=== PATIENT | male | born 1950 | race Caucasian/White ===

== ENCOUNTER 2024-05-22 07:10 | Outpatient (CLI) | payer MEDICARE, BC, SELFPAY ==
--- NOTE | ~2024-05-22 | NM_ITS ---
EXAMINATION: NM bone scan whole body DATE: 05/22/2024 11:11 INDICATION: Prostate cancer TECHNIQUE: 87.4 mCi Tc-99m HDP was administered intravenously. Delayed whole-body scintigrams were o btained. COMPARISON: CT dated 05/22/2024 FINDINGS: Photopenic defect at the left hip corresponding to a total hip arthroplasty. Small foci of likely ent hesopathic uptake at the bilateral patellae and anterior tibial tuberosities. Likely degenerative deedee nt centered uptake at the medial compartment of the right knee, right acromioclavicular joint and at the cephalad margin of the right hip with corresponding osteoarthritic changes. There is increased up take at the right side of the L5-S1 disc space where there is severe disc height loss with degenerati ve endplate remodeling on prior CT as well as at the left L3-L4 facet joint where there is associated severe osteoarthritis. There are no other atypical foci of bone uptake to suggest osseous metastatic disease. IMPRESSION: 1. Typical pattern of scattered foci of likely degenerative enthesopathic, osteoarthritic and discoge parris uptake as detailed above. No lesion suspicious for metastatic disease. Reviewed, dictated and finalized at location B. IMPRESSION: 1. Typical pattern of scattered foci of likely degenerative enthesopathic, oste oarthritic and discogenic uptake as detailed above. No lesion suspicious for me tastatic disease.
--- NOTE | ~2024-05-22 | CT_ITS ---
EXAMINATION: CT abdomen pelvis w con DATE: 05/22/2024 07:57 INDICATION: Prostate cancer TECHNIQUE: Computed tomography (CT) of the abdomen and pelvis was performed with 100 mL Omnipaque-350 intravenous contrast. Automated exposure control and iterative reconstruction technique were employe d. The dose-length product was 383.41 mGy-cm. COMPARISON: None FINDINGS: Mild emphysema at the visualized lower lungs with a few small calcified pleural plaques at the periph efrain of the right lower lung. Visualized heart size is normal. Atherosclerotic coronary artery calcifi c lesion. Partially visualized cardiac pacemaker leads in the heart. No pericardial effusion. Liver, gallbladder, spleen, pancreas, bilateral adrenal glands are normal. There are bilateral renal cysts m easuring up to 3.6 similar on the right. Very small fat-containing umbilical hernia. There is moderat e colonic diverticulosis with a sigmoid predominance. There is no adjacent inflammatory change to culp ggest diverticulitis. No bowel obstruction. Prostatomegaly measuring approximately 5.9 x 4.4 cm altho ugh visualization is suboptimal due to streak artifact from adjacent left total hip arthroplasty. Mathew dder is normal. No free intraperitoneal gas or fluid. No pathologically enlarged abdominal or pelvic lymphadenopathy. Small fat-containing left inguinal hernia. There is calcified atherosclerosis of the aorta and many of the other arteries. Mild lower lumbar levocurvature with moderate spondylosis. Mod erate right hip osteoarthritis. There are few scattered small sclerotic bone lesions in the spine and pelvis which could represent bone islands or potentially metastatic disease. IMPRESSION: 1. Prostatomegaly with no pathologically enlarged lymphadenopathy in the abdomen or pelvis to suggest metastatic disease. 2. There are few scattered small sclerotic lesions in the visualized spine and pelvis typical for bon e islands however could not exclude metastatic disease and would correlate with either bone scan or P SMA PET. 3. Mild emphysema at the lung bases with a few unilateral small calcified pleural plaques on the righ t which could represent sequela of a prior exudative effusion. 4. Sigmoid diverticulosis. Reviewed, dictated and finalized at location B. IMPRESSION: 1. Prostatomegaly with no pathologically enlarged lymphadenopathy in the abdome n or pelvis to suggest metastatic disease. 2. There are few scattered small sclerotic lesions in the visualized spine and pelvis typical for bone islands however could not exclude metastatic disease an d would correlate with either bone scan or PSMA PET. 3. Mild emphysema at the lung bases with a few unilateral small calcified pleur al plaques on the right which could represent sequela of a prior exudative effu thony. 4. Sigmoid diverticulosis.
[2024-05-22 07:44] LABS: Estimated Glomerular Filt Rate > 60
== END 2024-05-22 07:11 | disposition home or self-care (01) ==
PROVIDERS: PCP Internal Medicine; Visit Provider Urology
DX: C61 Malignant neoplasm of prostate (principal); K57.30 Diverticulosis of large intestine without perforation or abscess without bleeding; J43.9 Emphysema, unspecified
CPT/HCPCS: 74177; 78306; A9503; Q9967

== ENCOUNTER 2024-06-20 13:36 | Outpatient (CLI) | payer MEDICARE, BC, SELFPAY ==
--- NOTE | ~2024-06-20 | XR_ITS ---
CHEST RADIOGRAPH, PA AND LATERAL CLINICAL HISTORY: C61 - Malignant neoplasm of prostate . COMPARISON: None TECHNIQUE: PA and lateral views of the chest. FINDINGS The right mid lung is partially obscured due to pacemaker generator. Wires project over the right atrium and right ventricle. The remainder of the cardiomediastinal silhouette is otherwise unremarkable. The lungs are clear. Visualized osseous structures and soft tissues are unremarkable. IMPRESSION: No focal infiltrate or effusion. Reviewed, dictated and finalized at location A.
--- NOTE | 2024-06-20 14:38 | ECG_ITS ---
Test Date: 2024-06-20 14:44:06 Measurements Intervals Terry Rate: 67 P: 99 DE: 256 QRS: 87 QRSD: 154 T: 92 QT: 426 QTc: 451 Interpretive Statements ELECTRONIC ATRIAL PACEMAKER ELECTRONIC VENTRICULAR PACEMAKER ABNORMAL RHYTHM ECG No previous ECG available for comparison Electronically Signed On 06-21-2024 08:25:50 CDT by Luiza Tracey M.D.
[2024-06-20 15:02] LABS: Basophils Absolute Auto 0.1 K/mm3 (0.0-0.1); Basophils Percent Auto 0.7 % (0.2-1.2); Eosinophils Absolute Auto 0.1 K/mm3 (0-0.3); Eosinophils Percent Auto 1.1 % (0-4.4); Hematocrit 46.5 % (42.0-52.0); Hemoglobin 15.8 g/dL (14.0-18.0); Immature Granulocyte Absolute 0.03 K/mm3 (0.00-0.031); Immature Granulocyte Percent A 0.3 % (0-0.5); Lymphocytes Absolute Auto 1.57 K/mm3 (0.9-3.2); Lymphocytes Percent Auto 16.3 % (18.3-44.2); Mean Corpuscular Hemoglobin 31.4 pg (26-34); Mean Corpuscular Volume 92.4 fl (80-100); Mean Platelet Volume 8.8 fl (7.4-10.4); Monocytes Absolute Auto 0.6 K/mm3 (0.1-0.6); Monocytes Percent Auto 6.3 % (2.6-8.5); Neutrophils Absolute Auto 7.3 K/mm3 (1.3-6.7); Neutrophils Percent Auto 75.3 % (45.5-73.1); Platelet Count Result 220 k/mm3 (150-375); Red Blood Count 5.03 M/mm3 (4.6-6.20); White Blood Count 9.7 K/mm3 (4.5-10.0)
[2024-06-20 15:03] LABS: Add Urine Microscopic? NO; Appearance Urine Clear (Clear); Bilirubin Urine Negative (Negative); Blood Urine Negative (Negative); Color Urine Yellow (Yellow); Glucose Urine UA 3+ mg/dL (Negative); Ketones Urine Negative (Negative); Leukocyte Esterase Ur Negative LEU/UL (Negative); Nitrate Urine Negative (Negative); Protein Urine Negative (Negative); Specific Grav Ur 1.008 (1.001-1.035); Urobilinogen Urine 0.2 mg/dL (<2.0); pH Urine 5.5 (5.0-9.0)
[2024-06-20 15:12] LABS: Prothrombin Time 13.9 Seconds (11.1-14.7)
[2024-06-20 15:13] LABS: Alanine Aminotransferase 16 U/L (6-50); Albumin Level 4.3 g/dL (3.5-5.1); Alkaline Phosphatase 78 U/L (38-126); Anion Gap 10 mmol/L (4-12); Aspartate Amino Transferase 15 U/L (17-59); Bilirubin,Total 0.5 mg/dL (0.2-1.3); Blood Urea Nitrogen 22 mg/dL (9-20); Calcium 8.8 mg/dL (8.4-10.2); Carbon Dioxide 22 mmol/L (22-30); Chloride 107 mmol/L (98-107); Estimated Glomerular Filt Rate > 60; Glucose 117 mg/dL (65-110); Partial Thromboplastin Time 26.2 Seconds (22.3-36.8); Potassium 4.1 mmol/L (3.4-5.0); Sodium 139 mmol/L (137-145)
== END 2024-06-20 13:37 | disposition home or self-care (01) ==
LOC: ANHSURGERY 13:40
PROVIDERS: PCP Internal Medicine; Visit Provider Urology
DX: C61 Malignant neoplasm of prostate (principal); R94.31 Abnormal electrocardiogram [ECG] [EKG]
CPT/HCPCS: 36415; 71046; 80053; 81003; 85025; 85610; 85730; 86850; 86900; 86901; 93005

== ENCOUNTER 2024-07-03 01:34 | Day surgery (SDC) | payer MEDICARE, BC, SELFPAY ==
--- NOTE | 2024-06-18 07:34 | PM.IMHP ---
H&P: HPI History of Present Illness Date/Time: 06/18/24 07:34 Chief Complaint: Prostate cancer Narrative: This patient is a 73-year-old male with longstanding outlet obstructive voiding symptoms secondary to BPH. He was recently found to have a PSA of 5.2 and prostate biopsy demonstrated 8 of 12 cores with [place] 3 +4 equals 7 and 4+3=7 adenocarcinoma. On the biopsy there was evidence of perineural invasion but no extracapsular extension. Calculated potential for lymph node involvement was 2% and seminal vesicle involvement 6%. Prostate volume was 53.8 g. After careful discussion of the therapeutic options including active surveillance, radiation therapy and robotic prostatectomy he is has elected for the latter. He is aware of the risks including, but not limited to, failure to control his cancer need for additional therapy, rectal injury, urinary incontinence and erectile dysfunction. Review of Systems Cardiovascular: Cardiovascular: Denies chest pain, Denies lightheadedness, Denies palpitations and Denies dyspnea Respiratory: Respiratory: Denies dyspnea Gastrointestinal: Gastrointestinal: Denies diarrhea, Denies nausea and Denies vomiting Genitourinary: Genitourinary: Denies hematuria and Denies dysuria Endocrine: Endocrine: Denies palpitations Exam Const: General: no acute distress Resp: Effort & Inspection: normal respiratory effort GI: Inspection: non-distended GI Palp: No abdominal tenderness and No Guarding due to palpation present (GI) Auscultation: normal bowel sounds Assessment and Plan Assessment and plan (1) Prostate cancer: Code(s): C61 - Malignant neoplasm of prostate Status: Acute Plan Robotic assisted radical prostatectomy with bilateral pelvic lymphadenectomy
[2024-06-20 13:56] VITALS: BP 99/69; PULSE 62; RESP 16; TEMP 36.9; O2SAT 96; BMI 23.1
--- NOTE | 2024-06-20 14:02 | PC.NURSE ---
Addendum entered by Jhoana Shelton RN 06/20/24 15:24: PT INSTRUCTED TO FOLLOW INSTRUCTIONS FOR BOWEL PREP/LIQUID DIET PER DR ADAMS ON DAY BEFORE SURGERY. PT RELAYS UNDERSTANDING. Original Note: Report to the Outpatient Waiting Room, entrance under the green pavilion located off [facility], at time ___6:00AM____ on date ____07/03/24___. Planned Procedure Time: ___7:30AM .? Time changes happen often and if your time is changed the preop area will call you the afternoon before. - You and your visitor will be asked to self-screen and do not enter if you have any COVID symptoms. Please call surgeon if you need to reschedule. - A mask is optional within the hospital at this time. Patients may have clear liquids (water, carbonated beverages, clear teas, apple juice) until 3 hours prior to surgery with a maximum of 20 ounces. - No food from midnight until time of surgery and no smoking. Take only the following medications with a SIP of water on the morning of surgery: ___NONE DO NOT STOP ANY OF YOUR OTHER PRESCRIPTION MEDICATIONS PRIOR TO SURGERY EXCEPT THE FOLLOWING Medications to discontinue per physician ____HOLD ASPIRIN AND ALL VITAMINS/SUPPLEMENTS 7 DAYS PRE-OP PER DR ADAMS__ Date to take last dose 06/25/24 Please no make-up, nail kiswahili, hairspray, perfume, deodorant, or body powder the day of surgery.? No jewelry (including any body piercings) or valuables the day of surgery, leave them at home.? Please take a shower or bath the night before, or the morning of, surgery with an antibacterial soap.? Wear comfortable, loose fitting clothing.? - Jewelry must be removed prior to entering the operating room.? Rings and piercings that are not removed may be cut off. - The hospital will not accept responsibility for valuables.? - Please leave all valuables, including medications, at home the day of surgery. If you are going home after surgery, a licensed regional intermodal truck driver must drive you home.? - NO public transportation without another adult if you receive anesthesia. - We recommend that an adult stay with you for 24 hours following discharge. - We also recommend that you do not drive, make important decision, drink alcoholic beverages, or take any drugs that were not prescribed by your health care provider for at least 24 hours after your discharge time. Follow any additional instructions given to you from your surgeon. Telephone instructions given to ____PATIENT and asked if any additional questions and then verbalized understanding. Patient advised to call surgeon office or pre surgery nurse liaison [phone] if any additional questions.
[2024-07-03] VITALS (14 sets, daily range): BP systolic 95–126; BP diastolic 66–93; PULSE 60–120; RESP 4–20; TEMP 36–37.3; O2SAT 95–100
--- NOTE | 2024-07-03 06:19 | WPDHPUPDATE1 ---
History and Physical Update Update Date/Time: 07/03/24 06:19 History and Physical has been reviewed, including an updated exam of the patient. There are NO changes in the patient's condition. Risks, benefits, and alternatives have been discussed and questions answered. Patient agrees to proceed with procedure.
[2024-07-03] MEDS: LACTATED RINGERS 1,000 ML 30 ML IV CONT ×2 (06:30→11:05)
[2024-07-03 06:33] LABS: Glucose Point of Care 157 mg/dl (65-105)
--- NOTE | 2024-07-03 06:41 | P.PNAN_ITS ---
Anes - Initial Pre Proc Eval Procedure: Operation Date: 07/03/24 07:30 Proposed Procedures p Robotic Laparoscopic Prostatectomy with Bilateral Pelvic Lymph Node Dissection - Chau Tony MD Date/Time: 07/03/24 06:41 Surgeon: Chau Tony MD Pre Op Diagnosis: prostate CA Patient Data Age: 73 Gender: M Height: 1.78 m Weight: 73.1 kg Last Vital Signs Temp 36.9 C 06/20/24 13:56 Pulse 62 06/20/24 13:56 Resp 16 06/20/24 13:56 BP 99/69 L 06/20/24 13:56 Pulse Ox 96 06/20/24 13:56 O2 Del Method Room Air 06/20/24 13:56 Allergies Allergy/AdvReac Type Severity Reaction Status Date / Time penicillin G Allergy Hives Verified 06/20/24 13:46 Home Medications Medication Instructions Recorded Confirmed Type aspirin 81 mg tablet,delayed 81 mg PO 3XW 06/20/24 06/20/24 History release atorvastatin 20 mg tablet 20 mg PO HS 06/20/24 06/20/24 History cinnamon bark 500 mg capsule 1,000 mg PO DAILY 06/20/24 06/20/24 History (Cinnamon) dapagliflozin propanediol 5 mg 5 mg PO QAM 06/20/24 06/20/24 History tablet (Farxiga) finasteride 5 mg tablet 5 mg PO QAM 06/20/24 06/20/24 History glimepiride 2 mg tablet 2 mg PO QAM 06/20/24 06/20/24 History metformin 1,000 mg tablet 1,000 mg PO BID 06/20/24 06/20/24 History Laboratory Tests 07/03/24 06:29 POC Capillary Glucose 157 H mg/dl (65-105) Patient hx anesthesia problems: none Family hx anesthesia problems: none Results Review: All pre-operative results and documents have been reviewed as part of the pre- operative evaluation. FOR[facility]LY [facility] Past Medical History Medical History (Updated 07/03/24 @ 06:42 by Darinel Barba MD) COPD (chronic obstructive pulmonary disease) LEODAN (obstructive sleep apnea) Prostate cancer Social History Social History Smoking packs per day: 1 Smoking cigarettes per day: 20.0 Years smoked: 53 Smoking pack-years: 53.00 Smoking status: Current every day smoker Tobacco type: cigarettes Alcohol intake: former Alcohol use details: RECOVERING ALCOHOLIC, QUIT 40 YEARS Living arrangements: with family Additional living arrangements comments: Spiritual care concerns: No Anes - Eval Final PreProcedure Day of Procedure 07/03/24 06:41 Patient weight: normal Heart: regular rate and rhythm Lungs: clear to auscultation Airway: Mallampati scale class II Neurological: alert and oriented Last oral intake: >/= 8 hours ASA classification: III Emergent: no Anesthetic plan: proceed Anesthesia type and monitoring: general ETT and standard monitoring Results Review: All pre-operative results and documents have been reviewed as part of the pre- operative evaluation. Informed Consent: The patient's anesthetic plan and its attendant risks and benefits were discussed with the patient/family/POA. Questions were solicited and answers provided to the satisfaction of the patient/family/POA.
[2024-07-03] MEDS: ceFAZolin 2 GM/D5W 50 ML 2 GM/50 ML BAG IVPB (07:29)
--- NOTE | 2024-07-03 10:49 | P.OP_ITS ---
Procedure Note - Detailed Date of Procedure 07/03/24 Pre-op Diagnosis Prostate CA Post-op Diagnosis Same Procedure Performed Robotic assisted laparoscopic prostatectomy and bilateral pelvic lymphadenectomy Surgeon Chau Tony MD Anesthesia General Description of Procedure The patient was brought to the operative suite, where he was prepped and draped in routine sterile fashion while in a dorsal lithotomy, deep Trendelenburg position. A supraumbilical 10 mm trocar was placed after insufflation of the a bdomen with a Veress needle. Three robotic ports were then placed under direct vision. Two of these were placed in the right lower quadrant - 10 cm and 20 cm lateral to, and in line with, the umbilicus. A third robotic trocar was placed 10 cm to the left of the umbilicus, and 20 cm to the left of the umbilicus, a 12 mm standard laparoscopic trocar was placed to be used as an entry level marketing assistant port. La ly, a 5 mm trocar was placed in the left upper quadrant midway between the umbilicus and the left robotic trocar. Attention was then turned to the prostatectomy. I opted for a posterior approach in this patient. An incision was made in the parietal peritoneum along the posterior bladder/posterior prostate about 2 cm above the reflection of the peritoneum over the anterior rectum. The seminal vesicles and vas deferens were immediately identified. Dissection is undertaken in a fashion so as to avoid electrocautery as much as possible, particularly near the tips of the seminal vesicles. Dissection was also carried out in the midline so as to avoid any encounters with the ureters. The vas deferens and the seminal vesicles were dissected in their entirety to the base of the prostate. The plane anterior to Denoviller's fascia, anterior to the rectum and posterior to the prostate was then developed. I then dropped the bladder by incising the anterior parietal peritoneum just lateral to the median umbilical ligaments bilaterally. The bladder was dropped from the anterior abdominal and pelvic wall. The endopelvic fascia was identified and incised bilaterally, allowing for dissection of the posterior- lateral aspect of the prostate. The puboprostatic ligaments were transected near their origin from the posterior pubic ramus. This posterior lateral dissection of the prostate is also undertaken in a fashion so as to avoid electrocautery as much as possible. The dorsal vein of the penis is then secured with an 0 -Vicryl ligature. Attention is then turned to the bladder neck. The anterior bladder neck is incised at the vesico-prostatic junction. The previously placed urethral catheter was drawn through the urethrotomy. A very small bladder neck was maintained throughout the remainder of this dissection. The posterior bladder neck was incised in a fashion so as to avoid any injury to the ureteral orifices. Again, the small aperture of the bladder neck was maintained. The previously dissected vas deferens and the seminal vesicles were brought through the posterior bladder neck incision. The lateral prostatic pedicles were then carefully dissected from the lateral aspect of the prostate bilaterally. The prostatic pedicles were secured with Weck clips and transected. The neurovascular bundles were carefully dissected from the posterior-lateral aspect of the prostate. The dorsal vein of the penis was incised with electrocautery. Using cold scissors, the urethra was incised. After withdrawing the previously placed urethral catheter, the posterior urethra was sharply incised, as was the rectalurethralis muscle. Attention was then turned to an extended bilateral pelvic lymphadenectomy. The limits of this dissection were similar bilaterally. Specifically, the limits were the bifurcation of the common iliac vein proximally, the Yohannes's ligament distally, the pevic floor posteriorly. the pelvic sidewall laterally and the anterior aspect to the external iliac artery laterally. This dissection was undertaken with care to avoid any injury to the obturator nerve. The prostate, seminal vesicles and pelvic nodes were then placed in a specimen bag. The pelvis was copiously irrigated with saline. Urethrovesical anastomosis was then undertaken using similar two 3-0 V-lock sutures across a 20-Icelandic urethral catheter. The catheter was irrigated, and there was found to be no evidence of an irrigant extravasation. I opted not to place a pelvic drain. The robot is undocked, and the trocars were removed. The specimen was removed through the supraumbilical incision. The anterior rectus fascia at that suprapubic site was closed with a looped 0-PDS. Subcutaneous tissue was irrigated. Skin incisions were closed with 4-0 Vicryl subcuticular. Blood loss throughout this was 75cc. The patient tolerated the procedure well, was taken to recovery room in good condition. Pathology Yes Complications No immediate complications Condition Stable Disposition PACU
[2024-07-03 11:09] LABS: Glucose Point of Care 179 mg/dl (65-105)
[2024-07-03] MEDS: fentaNYL CITRATE INJ (*CRX) 100 MCG/2 ML VIAL 25 MCG IV PUSH ×2 (11:32→11:34)
--- NOTE | 2024-07-03 12:53 | PC.NURSE ---
This patient, Darron Cole, was admitted to [facility] at 12:35. Patient/family oriented to hospital policies and general routines including ID bracelet, bed and alarms, visiting hours, pain management, procedures, bathroom and other care routines, personal items, smoking policy, room service/diet, and visiting hours. Information on how to activate the Rapid Response Team has been discussed. Patient/Family are encouraged to report perceived risks to care and to ask questions if they do not understand what they are told or what they should do.
[2024-07-03] MEDS: LACTATED RINGERS 1,000 ML 125 ML IV CONT ×2 (13:22→21:13)
[2024-07-03] MEDS: HYOSCYAMINE SULFATE 0.125 MG TABLET SUBLINGUAL (13:30)
[2024-07-03] MEDS: ATORVASTATIN 20 MG TABLET PO (20:10)
[2024-07-04 00:35] VITALS: BP 96/55; PULSE 52; RESP 18; TEMP 36.6; O2SAT 95
[2024-07-04 05:15] VITALS: BP 102/62; PULSE 72; RESP 16; TEMP 36.8; O2SAT 95
--- NOTE | 2024-07-04 06:30 | P.PNUR_ITS ---
Progress Note: A&P Assessment and Plan (1) Prostate cancer: Code(s): C61 - Malignant neoplasm of prostate Status: Acute Plan * Comfortable, slept well. * Increase diet/ambulation this morning. * Likely discharge this afternoon Subjective Subjective Date/Time Seen: 07/04/24 06:30 Interval history: Comfortable, slept well Review of Systems Cardiovascular: Cardiovascular: Denies chest pain, Denies lightheadedness, Denies palpitations and Denies dyspnea Respiratory: Respiratory: Denies dyspnea Gastrointestinal: Gastrointestinal: Denies diarrhea, Denies nausea and Denies vomiting Genitourinary: Genitourinary: Denies hematuria and Denies dysuria Endocrine: Endocrine: Denies palpitations Exam Const: General: no acute distress Resp: Effort & Inspection: normal respiratory effort GI: Inspection: non-distended GI Palp: No abdominal tenderness and No Guarding due to palpation present (GI) Auscultation: normal bowel sounds Objective Data Vital Signs Vital Signs: Vital Signs - 24 hr 07/03/24 11:05 07/03/24 11:20 07/03/24 11:35 Temperature 97.9 F Pulse Rate 68 68 70 Respiratory Rate 16 19 14 Blood Pressure 126/93 H 95/70 L 116/71 Pulse Oximetry 98 98 97 Oxygen Delivery Simple Face Mask Simple Face Mask Room Air Oxygen Flow Rate 8 8 07/03/24 11:50 07/03/24 12:05 07/03/24 12:20 Temperature Pulse Rate 74 75 76 Respiratory Rate 14 12 13 Blood Pressure 109/79 114/70 111/70 Pulse Oximetry 95 100 97 Oxygen Delivery Nasal Cannula Nasal Cannula Nasal Cannula Oxygen Flow Rate 2 2 2 07/03/24 14:02 07/03/24 14:32 07/03/24 12:40 Temperature 97.2 F L 97.5 F L Pulse Rate 68 120 H Respiratory Rate 14 4 L Blood Pressure 101/69 98/66 L Pulse Oximetry 95 96 Oxygen Delivery Room Air Oxygen Flow Rate 07/03/24 18:10 07/03/24 21:30 07/03/24 23:00 Temperature 98.3 F 99.1 F Pulse Rate 63 69 Respiratory Rate 18 20 Blood Pressure 106/70 102/67 Pulse Oximetry 97 98 98 Oxygen Delivery Room Air Oxygen Flow Rate 07/04/24 00:35 Temperature 98 F Pulse Rate 52 L Respiratory Rate 18 Blood Pressure 96/55 L Pulse Oximetry 95 Oxygen Delivery Oxygen Flow Rate Intake/Output Intake/Output: Intake & Output 07/01/24 07/02/24 07/03/24 07/04/24 23:59 23:59 23:59 23:59 Intake Total 1761.3 Output Total 50 Balance 1711.3 Meds/Results Medications: Active Medications Generic Name Dose Route Start Last Admin Trade Name Freq PRN Reason Stop Dose Admin Atorvastatin Calcium 20 mg 07/03/24 21:00 07/03/24 20:10 Atorvastatin 20 Mg Tablet PO 20 mg HS ISAIAH Administration Empagliflozin 10 mg 07/04/24 09:00 Empagliflozin 10 Mg Tablet BY MOUTH QAM [facility] Finasteride 5 mg 07/04/24 09:00 Finasteride 5 Mg Tablet PO QAM [facility] Glimepiride 2 mg 07/04/24 08:00 Glimepiride 2 Mg Tablet PO DAILY@0800 ISAIAH Hyoscyamine 0.125 mg 07/03/24 12:27 07/03/24 13:30 Hyoscyamine Sulfate 0.125 Mg Tablet SUBLINGUAL 0.125 mg Q4H PRN Administration Bladder Spasm Lactated Ringer's 1,000 mls @ 125 mls/hr 07/03/24 12:27 07/03/24 21:13 Lr - Lactated Ringers Iv IV CONT 125 mls/hr .Q8H ISAIAH Administration Ketorolac Tromethamine 15 mg 07/03/24 12:27 Ketorolac 15 Mg/Ml Vial (*Bkc) IV PUSH 07/04/24 12:26 Q6H PRN Pain Rated 4-6 Levofloxacin 500 mg 07/04/24 09:00 Levofloxacin 500 Mg Tablet PO DAILY ISAIAH Naloxone HCl 0.1 mg 07/03/24 12:27 Naloxone Hcl 0.4 Mg/Ml Vial IV PUSH Q2M PRN Opiate Reversal Ondansetron HCl 4 mg 07/03/24 12:27 Ondansetron Inj 4 Mg/2 Ml Vial IV PUSH Q6H PRN Nausea And Vomiting Labs Labs: Laboratory Results - last 24 hr 07/03/24 07/03/24 06:29 11:08 POC Capillary Glucose 157 H 179 H
[2024-07-04 07:35] LABS: Hematocrit 42.4 % (42.0-52.0); Hemoglobin 13.7 g/dL (14.0-18.0)
--- NOTE | 2024-07-04 07:41 | WPDANESPN ---
Anes - Prog Note Post-Op Date/Time: 07/04/24 07:41 Cardiovascular status: normal Respiratory status: normal Airway patency: baseline Mental status: baseline Post-Op hydration status: normal Vital Signs: Last Vital Signs Temp 36.8 C 07/04/24 05:15 Pulse 72 07/04/24 05:15 Resp 16 07/04/24 05:15 BP 102/62 07/04/24 05:15 Pulse Ox 95 07/04/24 05:15 O2 Del Method Room Air 07/03/24 23:00 O2 Flow Rate 2 07/03/24 12:20 Pain Score (VAS): 10/20 I/O: Intake & Output 07/03/24 07/03/24 07/04/24 15:59 23:59 07:59 Intake Total 300 1461.3 100 Output Total 50 2100 Balance 250 1461.3 -1999 Laboratory Tests 07/04/24 07:01 07/03/24 07/04/24 11:08 07:01 Hgb 13.7 L Hct 42.4 Sodium Pending Potassium Pending Chloride Pending Carbon Dioxide Pending Anion Gap Pending BUN Pending Creatinine Pending Estim Creat Clear Calc Pending Estimated GFR Pending Glucose Pending POC Capillary Glucose 179 H Calcium Pending Post-procedural complaints: none Patient Feedback: Patient satisfied with anesthetic care.
[2024-07-04 07:46] LABS: Anion Gap 3 mmol/L (4-12); Blood Urea Nitrogen 12 mg/dL (9-20); Calcium 8.2 mg/dL (8.4-10.2); Carbon Dioxide 26 mmol/L (22-30); Chloride 107 mmol/L (98-107); Estimated CRCL calculation 65 ml/min; Estimated Glomerular Filt Rate > 60; Glucose 139 mg/dL (65-110); Potassium 3.7 mmol/L (3.4-5.0); Sodium 136 mmol/L (137-145)
[2024-07-04] MEDS: levoFLOXacin 500 MG TABLET PO (08:24)
[2024-07-04] MEDS: FINASTERIDE 5 MG TABLET PO (08:24)
[2024-07-04] MEDS: EMPAGLIFLOZIN 10 MG TABLET BY MOUTH (08:24)
[2024-07-04] MEDS: GLIMEPIRIDE 2 MG TABLET PO (08:24)
[2024-07-04 10:12] VITALS: BP 115/79; PULSE 69; RESP 16; TEMP 36.3; O2SAT 91
--- NOTE | 2024-07-04 12:29 | P.DS_ITS ---
DS: Admitting Diagnosis Discharge Date 07/04/2024 Admitting Diagnosis Prostate cancer DS: Discharge Diagnosis Discharge Diagnosis (1) Prostate cancer: Code(s): C61 - Malignant neoplasm of prostate Status: Acute DS: Summary Hospital Course Hospital Course: This patient was admitted on the morning of his planned robotic prostatectomy. This procedure was uneventful, as was his postoperative course. By the evening of the procedure he was sitting at the bedside in tolerating a liquid diet. The following morning he was ambulating freely and tolerating regular food. His catheter drainage remained essentially clear throughout. His postoperative hem oglobin and serum creatinine were unremarkable. At the time of discharge he has been instructed in appropriate care for his Arriaza catheter with both a leg bag and bedside bag. He will be discharged with plans to follow-up in 1 week with a cystogram. Time Spent with Patient Time attestation: Total time spent providing and/or coordinating discharge services: DS: Data Data Completed and Pending Pending studies at discharge: Pending at discharge 07/03/24 10:13 Surgical [PTH] Routine Labs on day of discharge: Labs from last 24 hours 07/04/24 07:01 Hgb 13.7 L Hct 42.4 Sodium 136 L Potassium 3.7 Chloride 107 Carbon Dioxide 26 Anion Gap 3 L BUN 12 D Creatinine 0.90 Estim Creat Clear Calc 65 Estimated GFR > 60 Glucose 139 H Calcium 8.2 L Discharge Plan Discharge Patient Disposition: Home, Self-Care Discharge Instructions: 1) Arriaza catheter -> leg bag / bedside bag at night. 2) No lifting/straining >15lbs. x3 weeks. 3) No driving x1-week. 4) Resume normal, pre-operative diet. 5) My office will contact regarding follow-up in 1-week with cystogram. Stand Alone Forms: General Discharge Instructions Discharge Orders: Discharge Order (Routine); Ordered 07/04/24 Ordered By: Chau Tony Discharge Medications: New sulfamethoxazole-trimethoprim 800-160 mg tablet 1 tablet PO Q12H Qty: 6 0RF hyoscyamine sulfate 0.125 mg tablet 0.125 mg PO Q6H PRN (Reason: bladder spasms) Qty: 20 2RF ketorolac 10 mg tablet 10 mg PO Q6H 5 Days Qty: 20 0RF docusate sodium [Colace] 100 mg capsule 100 mg PO DAILY Qty: 30 0RF Continued atorvastatin 20 mg tablet 20 mg PO HS glimepiride 2 mg tablet 2 mg PO QAM metformin 1,000 mg tablet 1,000 mg PO BID dapagliflozin propanediol [Farxiga] 5 mg tablet 5 mg PO QAM Held aspirin 81 mg Tablet,Delayed Release (Dr/Ec) 81 mg PO 3XW Hold Instructions: Resume on 07/07/24. cinnamon bark [Cinnamon] 500 mg Capsule 1,000 mg PO DAILY Hold Instructions: Resume on 07/07/24. Discontinued finasteride 5 mg tablet 5 mg PO QAM
== END 2024-07-04 12:53 | disposition home or self-care (01) ==
LOC: ANHSURGERY 05:40 → ANH3MEDSUR 13:11
PROVIDERS: PCP Internal Medicine; Visit Provider Urology
PROC: 0VT04ZZ Resection of Prostate, Percutaneous Endoscopic Approach (ICD-10-PCS; CPT 55867; principal; 2024-07-03 07:30)
DX: C61 Malignant neoplasm of prostate (principal); J44.9 Chronic obstructive pulmonary disease, unspecified; G47.33 Obstructive sleep apnea (adult) (pediatric); F17.210 Nicotine dependence, cigarettes, uncomplicated; Z79.82 Long term (current) use of aspirin; Z79.84 Long term (current) use of oral hypoglycemic drugs
CPT/HCPCS: 55866; 38571; S2900; 36415; 80048; 82948; 85014; 85018; 88305; 88309; A9270; J0330; J0690; J1100; J1171; J2003; J2250; J2405; J2704; J3010; J7030; J7120

== ENCOUNTER 2024-07-11 08:10 | Outpatient (CLI) | payer MEDICARE, BC, SELFPAY ==
--- NOTE | ~2024-07-11 | XR_ITS ---
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 There was retrograde administration of Omnipaque 350 mixed with saline contrast into patient's existing Arriaza catheter. Fluoroscopic dayanara ges of the pelvis were obtained. A post-void image was also performed. A total of 19 fluoroscopic dayanara ges and one overhead radiograph were obtained. Fluoroscopy exposure time was 0.4 minutes. Total DAP w as 6.541 Gycm^2. FINDINGS: Continuous Improvement Specialist image demonstrates moderate lower lumbar spondylosis and a left total hip arthroplasty. Normal contour to the contrast-filled bladder with no evident extravasation at the prostatectomy bed. IMPRESSION: No bladder leak. Reviewed, dictated and finalized at location A. IMPRESSION: No bladder leak.
== END 2024-07-11 08:11 | disposition home or self-care (01) ==
PROVIDERS: PCP Internal Medicine; Visit Provider Urology
DX: C61 Malignant neoplasm of prostate (principal)
CPT/HCPCS: 51600; 74430; Q9967